=== PATIENT | male | born 1960 | race Caucasian/White ===

== ENCOUNTER 2022-05-22 08:46 | Emergency (ER) | payer BC, OTHER ==
[2022-05-22] MEDS ORDERED: HYDROmorphone 1 MG/ML Syringe ONE (09:07)
[2022-05-22] MEDS ORDERED: HYDROmorphone 1 MG/ML Syringe IM ONE (09:09)
[2022-05-22] MEDS ORDERED: Propofol 200 MG/20 ML SDV IVPUSH ONE (10:09)
[2022-05-22] MEDS ORDERED: Diphtheria,Pertussis(Acell),Tetanus Vaccine 0.5 ML Syringe IM ONE (10:10)
[2022-05-22 10:43] VITALS: BP 158/92; PULSE 53
[2022-05-22] MEDS ORDERED: Ketorolac 30 MG/ML SDV IVPUSH ONE (10:56)
== END 2022-05-22 11:24 | disposition home or self-care (01) ==
LOC: JP.ED 08:46
DX: S52.531A Colles' fracture of right radius, initial encounter for closed fracture (principal); Z23 Encounter for immunization; Z88.5 Allergy status to narcotic agent; Z79.82 Long term (current) use of aspirin; Z79.899 Other long term (current) drug therapy; W11.XXXA Fall on and from ladder, initial encounter
CPT/HCPCS: 25605; 73100; 73110; 90471; 90715; 96372; 96374; 99283; J1170; J1885; J2704

== ENCOUNTER 2025-04-22 06:20 | Day surgery (SDC) | payer BC, MEDICARE ==
[2025-04-22] MEDS ORDERED: fentaNYL 50 MCG/ML SDV ONE (07:23)
[2025-04-22] MEDS ORDERED: Midazolam 1 MG/ML 2 ML SDV ONE (07:23)
[2025-04-22] MEDS ORDERED: Propofol 200 MG/20 ML SDV ONE (07:23)
[2025-04-22] MEDS: Lactated Ringers 1,000 ML IV SCH (07:27)
[2025-04-22 08:52] VITALS: BP 85/61; PULSE 56
== END 2025-04-22 09:01 | disposition home or self-care (01) ==
LOC: JP.SDS 06:20
PROVIDERS: ATTEND Family Medicine
DX: Z12.11 Encounter for screening for malignant neoplasm of colon (principal); K62.1 Rectal polyp; K57.30 Diverticulosis of large intestine without perforation or abscess without bleeding; K64.8 Other hemorrhoids; I25.10 Atherosclerotic heart disease of native coronary artery without angina pectoris; E11.9 Type 2 diabetes mellitus without complications; Z88.5 Allergy status to narcotic agent; Z88.8 Allergy status to other drugs, medicaments and biological substances; Z79.82 Long term (current) use of aspirin; Z87.891 Personal history of nicotine dependence; Z79.899 Other long term (current) drug therapy
CPT/HCPCS: 00811; 45380; 88305; 88341; 88342; 88360; 88364; 88365; J2250; J2704; J3010; J7120